=== PATIENT | female | born 1995 | race Caucasian/White ===

== ENCOUNTER 2024-09-12 08:51 | Outpatient (CLI) | payer OTHER, SELFPAY | END 2024-09-12 08:52 | disposition home or self-care (01) | PROVIDERS: PCP Emergency Medicine; Visit Provider Emergency Medicine | DX: Z00.00 Encounter for general adult medical examination without abnormal findings (principal); E66.9 Obesity, unspecified; Z13.6 Encounter for screening for cardiovascular disorders; Z13.1 Encounter for screening for diabetes mellitus | CPT/HCPCS: 80061; 82947; 84443 ==